=== PATIENT | female | born 1985 | race Caucasian/White ===

== ENCOUNTER 2020-03-10 14:26 | Emergency (ER) | payer BC ==
[2020-03-10 14:31] VITALS: BP 147/100; TEMP 97.9
--- NOTE | 2020-03-10 14:49 | ED ---
General Adult HPI - General Chief complaint: Arrhythmia/Palpitations Stated complaint: tachycardia,abscess buttocks Time Seen by Provider: 03/10/20 14:34 Source: patient, RN notes reviewed Mode of arrival: ambulatory Limitations: no limitations - History of Present Illness Initial comments: 34-year-old female with a past medical history cholecystectomy presents to the emergency department for a chief complaint of abscess of the buttock. Patient states she noticed it this weekend and it started to worsen. States that today it opened up and drained. She went to urgent care in her heart rate was in the 120s so they were concerned and sent her to the ER. She denies any abdominal pain. Denies any fevers. States she just feels very anxious and thinks that is why her heart rate is high. Dates that she was told she might have to have it "scraped out" by her brother and this caused her significant anxiety. She did schedule an appointment with a surgeon in one week.Patient has no other complaints at this time including shortness of breath, chest pain, abdominal pain, nausea or vomiting, headache, or visual changes. - Related Data Previous Rx's Medication Instructions Recorded Sulfamethox-Tmp 800-160Mg [Bactrim 1 tab PO Q12HR #20 tab 03/10/20 DS 800-160 mg] Allergies Allergy/AdvReac Type Severity Reaction Status Date / Time No Known Allergies Allergy Verified 03/10/20 14:31 Review of Systems ROS Statement: Those systems with pertinent positive or pertinent negative responses have been documented in the HPI. ROS Other: All systems not noted in ROS Statement are negative. Past Medical History Past Medical History: No Reported History History of Any Multi-Drug Resistant Organisms: None Reported Past Surgical History: Cholecystectomy Smoking Status: Current every day smoker Past Alcohol Use History: Daily Past Drug Use History: None Reported General Exam Limitations: no limitations General appearance: alert, in no apparent distress Head exam: Present: atraumatic, normocephalic, normal inspection Eye exam: Present: normal appearance, PERRL, EOMI. Absent: scleral icterus, conjunctival injection, periorbital swelling ENT exam: Present: normal exam, mucous membranes moist Neck exam: Present: normal inspection, full ROM. Absent: tenderness, meningismus, lymphadenopathy Respiratory exam: Present: normal lung sounds bilaterally. Absent: respiratory distress, wheezes, rales, rhonchi, stridor Cardiovascular Exam: Present: regular rate, normal rhythm, normal heart sounds. Absent: systolic murmur, diastolic murmur, rubs, gallop, clicks GI/Abdominal exam: Present: soft, normal bowel sounds. Absent: distended, tenderness, guarding, rebound, rigid Rectal exam: Present: normal inspection (no pain), other (pilonidal abscess present, currently draining, no surrounding cellulitis) Neurological exam: Present: alert Course Vital Signs 03/10/20 03/10/20 14:28 14:46 Temperature 97.9 F Pulse Rate 127 H 97 Respiratory 18 Rate Blood Pressure 147/100 O2 Sat by Pulse 99 Oximetry Medical Decision Making - Medical Decision Making Physical exam does reveal a pilonidal abscess. This does not appear perirectal. No surrounding cellulitis. This is already draining. No history of diabetes. The patient will be given Bactrim. I did discuss using sitz baths frequently to keep facilitating the drainage. She has an appointment with surgeon in one week that she will attend. If she has any worsening symptoms she will return here to the emergency room. Disposition Clinical Impression: Pilonidal abscess Disposition: HOME SELF-CARE Condition: Good Instructions (If sedation given, give patient instructions): Pilonidal Cyst (ED) Additional Instructions: Please take antibiotic as directed. This was prescribed to your pharmacy. Do warm baths or sits baths. Follow-up with the surgeon next week at your scheduled appointment. Return for any worsening symptoms. Prescriptions: Sulfamethox-Tmp 800-160Mg [Bactrim DS 800-160 mg] 1 tab PO Q12HR #20 tab Is patient prescribed a controlled substance at d/c from ED?: No Referrals: Chadd Bain DO [Primary Care Provider] - 1-2 days Time of Disposition: 14:49
[2020-03-10 14:59] VITALS: PULSE 89; RESP 16
== END 2020-03-10 15:00 | disposition home or self-care (01) ==
LOC: EC 14:26
DX: L05.01 Pilonidal cyst with abscess (principal); F17.200 Nicotine dependence, unspecified, uncomplicated; Z90.49 Acquired absence of other specified parts of digestive tract
CPT/HCPCS: 87070; 87205; 99284

== ENCOUNTER → 2024-05-14 | Outpatient (CLI) | payer OTHER ==
--- NOTE | 2024-05-14 12:08 | MR ---
EXAMINATION TYPE: MR lumbar spine wo con DATE OF EXAM: 05/14/2024 COMPARISON: Radiograph 04/12/2024 HISTORY: 38-year-old female M54.5, M47.816 LUMBAR PAIN, Low back pain x1.5-2 years TECHNIQUE: Multiplanar, multisequence images of the lumbar spine were acquired without IV contrast. FINDINGS: Vertebral body heights are preserved and alignment is maintained. Conus medullaris is normal. Alignment is maintained. There is moderate degenerative disc disease at L5-S1 with desiccated, narrowed, and bulging disc. Justin e associated mixed Modic type I and type II endplate changes present here. Mild degenerative disc disease L4-L5 with early intervertebral disc desiccation. No large focal disc herniation or significant canal stenosis is seen. No suspicious bone marrow replacement. At L5-S1, there is diffuse disc bulge with superimposed left paracentral disc extrusion with inferior migration of disc material. The migrating disc material measures 9 mm craniocaudal and 9 mm wide and closely approaches, possibly abutting the traversing left S1 nerve root. Changes result in mild to moderate overall left neuroforaminal stenosis here at L5-S1. No prevertebral or paravertebral soft tissue abnormality. IMPRESSION: 1. Moderate degenerative disc disease at L5-S1 with mixed Modic type I and type II endplate change. A dditional mild degenerative disc disease at L4-L5. No large focal disc herniation or significant spin al canal stenosis. 2. However, there is a superimposed central, left paracentral disc extrusion with inferior migration of disc material at L5-S1. The migrating disc material measures 9 x 9 mm and closely approaches, poss ibly abuts the traversing left S1 nerve root. 3. Change results in [id number] left neural foraminal stenosis here at L5-S1.
== END | disposition home or self-care (01) ==
LOC: RADMRIMAIN 11:07
PROVIDERS: ATTEND Orthopaedic Surgery
DX: M51.37 Other intervertebral disc degeneration, lumbosacral region (principal); M51.27 Other intervertebral disc displacement, lumbosacral region; M51.36 Other intervertebral disc degeneration, lumbar region; M99.73 Connective tissue and disc stenosis of intervertebral foramina of lumbar region; M47.816 Spondylosis without myelopathy or radiculopathy, lumbar region
CPT/HCPCS: 72148

== ENCOUNTER → 2024-08-16 | Outpatient (CLI) | payer OTHER ==
[2024-08-16 14:57] VITALS: BP 139/94; PULSE 82; RESP 16; TEMP 97.9
--- NOTE | 2024-08-16 15:11 | P.PAINPG ---
PQRS Measure Charge Sheet Comment: HISTORY OF PRESENT ILLNESS: A 39 yr old female as a referral from Dr Jiang presents today w severe and chronic LBP > 3 mo secondary to radiculopathy, spondylosis and facet arthropathy without myelopathy for evaluation. Pt states pain level is provoked at 6 /10 in intensity, constant, localized in the lumbar spine, predominantly axial, ahcy in character w occasional shooting pain towards the buttocks. Pain is provoked by bending. Pain is alleviated by chiropractic treatments semi monthly x 3 mo in 2 023 without relief, physician guided home exercises 4 times weekly since 2022, medications (Naproxen), topical, heat, repositioning and rest . PMH: OA, Vitamin D Deficiency PSH: Cholecystectomy SH: Daily tobacco use, Daily ETOH use, No illicit drug use FH: Non contributory All: See list Meds: See list REVIEW OF ORGAN SYSTEMS: CONSTITUTIONAL: No fevers or chills. No recent weight loss. NEUROLOGICAL: + numbness and tingling along the distal extremities. No seizure disorders or headaches. MUSCULOSKELETAL: + pain PSYCHIATRIC: Denies current depression or suicidal thoughts. Physical Examinations : Constitutional : Cooperative , not in acute distress . Neurologic : Cranial nerve II to XII intact. No focal neurological deficits. Psychiatric : alert & oriented x 3. Matching mood & appropriate affect. Judgment & insight intact. Musculoskeletal : Cervical Spine Motor strength in the deltoid and biceps: Normal right side. Normal Left side Motor strength biceps and the wrist extensors: Normal right side . Normal left side Motor strength in the triceps muscle: Normal right side. Normal left side Deep tendon reflexes: Normal at the biceps. Normal at Brachioradialis. Normal at triceps Vertebral body tenderness to deep palpation over Cervical facet loading test: positive bilaterally Spurling test: positive bilaterally Neck distraction test: positive bilaterally Emeli sign: positive bilaterally Lumbar spine Motor strength lower extremities ,thigh and legs 5/5 Right side , 5/5 Left side Deep tendon reflexes : Normal Knee Jerk. Normal Ankle Jerk Vertebral body tenderness over L5 Solis Test positive BL L5-S1 Lumbar facet Loading Test: positive Right / positive Left Range of motion of the lumbar spine Flexion 30 degrees, extension 10 degrees Straight Leg Raise test: Left/ Right positive at degrees Geno test: positive right / positive left. Severe tenderness over the Sacroiliac joint on the Right / Left sides Gaenslen test: positive bilaterally Seated flexion test: positive bilaterally. Sacral spine : Severe tenderness over the Sacroiliac joint: right side / left side Range of motion: Flexion of the lumbar spine <60 degrees Range of motion: Extension of the lumbar spine <20 degrees Gaenslen's Test positive Geno test: positive right side / left side Thigh Thrust Test Sacral Thrust Test Imaging: MRI non contrast lumbar spine from 05/24/24 reviewed Assessment/ Plan : Lumbar radiculopathy Recommendation of DIMITRIS L5-S1 #1. Risks, benefits of procedure discussed and patient verbalized understanding. Admits to anti- coagulant use or medical history of diabetes. Protocol for discontinuation/ continuation of medications jaya procedure discussed. All questions answered. I have spent greater than 30 minutes on patient care today. Dr Mayer was available by phone for the evaluation of this patient. The time was used to review the medical records including relevant urine studies and Prescription history (MAPs), review of the available imaging, evaluation and examination of the patient, coordination of care with the medical staff and if applicable referring physicians, as well as creation of the medical record PQRS Narrative: Smoking Status Current every day smoker Home Medications: Ambulatory Orders Sulfamethox-Tmp 800-160Mg [Bactrim DS 800-160 mg] 1 tab PO Q12HR #20 tab 03/10/20 diazePAM [Valium] 5 mg PO DAILY PRN 1 Days #2 tab 08/16/24 Controlled Substance Measures - Controlled Substance Measures Is patient prescribed a controlled substance at discharge?: Yes When asked, does pt state using other controlled substances?: Yes If prescribed controlled substance>3 days was MAPS reviewed?: Prescribed <3 Days
== END ==
LOC: PNWHC3 13:49
PROVIDERS: ATTEND Specialist
DX: M47.896 Other spondylosis, lumbar region
CPT/HCPCS: 99211

== ENCOUNTER 2024-08-31 13:00 | Day surgery (SDC) | payer OTHER ==
[~2024-08-31 13:00] MED LIST: LACTATED RINGERS 1,000 ML IV SCH
[2024-08-31 13:27] VITALS: TEMP 97.2
[2024-08-31] MEDS ORDERED: IOPAMIDOL M200 10 ML VIAL ONE (13:42)
[2024-08-31] MEDS ORDERED: DEXAMETHASONE SOD PHOSPHATE 10 MG/ML 1 ML VIAL ONE (13:42)
--- NOTE | 2024-08-31 13:51 | P.PCN ---
Date of Procedure: 08/31/24 Procedure(s) Performed: PREOPERATIVE DIAGNOSIS: 1- Lumbar Degenerative Disc Diseases 2-Lumbar radiculopathy 3-lumbar foraminal stenosis POSTOPERATIVE DIAGNOSIS: 1-lumbar degenerative disc disease. 2-lumbar radiculopathy. 3-lumbar foraminal stenosis. PROCEDURE 1. Lumbar epidural steroid injection under fluoroscopic guidance at the L5-S1 level. (Fluoroscopy imaging was available in radiology department) 2. Lumbar epidurogram. ANESTHESIA: Lidocaine 1% 3 and then only. EBL: Minimal PROCEDURE INDICATION: The patient with low back pain and radiculitis symptoms unresponsive to conservative treatment. Fluoroscopy was used to optimize visualization of the needle placement and to maximize safety. PROCEDURE DESCRIPTION / TECHNIQUE: The patient was seen and identified in the preoperative area. Risks, benefits, complications including but not limited to infections ,bleeding ,allergic reaction to the medications ,nerve damage and not complete pain releife , and alternatives were discussed with the patient. The patient agreed to proceed with the procedure and signed the consent, and vital signs were stable. Patient was taken to the OR and time out was completed. The patient was placed in the prone position on procedure table and a pillow was placed under the abdomen to reduce lumbar lordosis. The lumbosacral area was prepped and draped in the usual sterile fashion.ere closely monitored during the procedure. Vital signs was monitered during the entire procedure. Using anterior-posterior fluoroscopy, the L5-S1 interlaminar space was identified and the skin over this site was marked and then infiltrated with 1% lidocaine subcutaneously. Subsequently, a 20-gauge Tuohy epidural needle was inserted and advanced toward the epidural space using the ``Loss of resistance technique and guided by AP and lateral fluoroscopy. The correct needle position in the epidural space was verified with the injection of 2 mL of the water soluble contrast dye Isovue 200 contrast and observing an excellent epidurogram with the epidural spread of the dye, after negative aspiration for blood and CSF and in the absence of paresthesias. Again after negative aspiration, a 6 ml mixture containing 20 mg of Dexamethasone ( Preservetive Free ), and 2 ml of preservative free Normal Saline, and 2 ml of preservative free lidocaine 1% solution was injected and a washout of epidurogram was seen. Needle was withdrawn intact, skin was cleansed, and bandages were applied. COMPLICATIONS: None DISPOSITION / PLANS: The patient was placed in a supine position and transferred to the recovery area in a stable condition for observation. There was no evidence of lower extremity motor or sensory deficit after the procedure. Patient was discharged from the recovery room after meeting discharge criteria. Home discharge instructions were given to the patient by the staff. The patient was reexamined prior to discharge. The patient will schedule a follow up in the clinic in 2-4 weeks.
[2024-08-31 14:17] VITALS: BP 121/79; PULSE 85; RESP 20
--- NOTE | 2024-08-31 15:39 | FL ---
EXAMINATION TYPE: FL guided pain mgmt statistic DATE OF EXAM: 08/31/2024 FLUOROSCOPY Lumbar Epid Inj 14sec fluoro time .[address] Donahue One image submitted [facility], , 08/31/2024 3:36 PM
== END 2024-08-31 14:19 | disposition home or self-care (01) ==
LOC: ORPAIN 13:00
PROVIDERS: ATTEND Specialist
DX: M51.16 Intervertebral disc disorders with radiculopathy, lumbar region (principal); M48.061 Spinal stenosis, lumbar region without neurogenic claudication; Z91.011 Allergy to milk products
CPT/HCPCS: 81025; 62323; J1100; Q9966

== ENCOUNTER → 2024-09-24 | Outpatient (CLI) | payer OTHER ==
[2024-09-24 08:33] VITALS: BP 121/87; PULSE 93; RESP 16
--- NOTE | 2024-09-24 16:47 | P.PAINPG ---
Objective - Vital Signs Vital signs: Vital Signs Temp Pulse 93 09/24/24 08:28 Resp 16 09/24/24 08:28 BP 121/87 09/24/24 08:28 Pulse Ox 98 09/24/24 08:28 FiO2 Intake & Output 09/23/24 09/24/24 09/24/24 18:59 06:59 18:59 Weight 98.883 kg PQRS Measure Charge Sheet Mode of Arrival: Ambulatory Comment: HISTORY OF PRESENT ILLNESS: A 39 yr old female presents today w severe and chronic LBP > 3 mo secondary to radiculopathy, spondylosis and facet arthropathy without myelopathy for evaluation s/p DIMITRIS L5-S1 #1. Pt states she experienced 40% pain relief s/p procedure. Pt states pain level is provoked at 6 /10 in intensity, constant, localized in the lumbar spine, predominantly axial, ahcy in character without shooting pain . Pain is provoked by bending, laying supine. Pain is alleviated by chiropractic treatments semi monthly x 3 mo in 2022 without relief, physician guided home exercises 4 times weekly since 2022, medications, topical, heat, repositioning and rest . Interventional procedures include DIMITRIS L5-S1 x1 Medications include Naproxen REVIEW OF ORGAN SYSTEMS: CONSTITUTIONAL: No fevers or chills. No recent weight loss. NEUROLOGICAL: + numbness and tingling along the distal extremities. No seizure disorders or headaches. MUSCULOSKELETAL: + pain PSYCHIATRIC: Denies current depression or suicidal thoughts. Physical Examinations : Constitutional : Cooperative , not in acute distress . Neurologic : Cranial nerve II to XII intact. No focal neurological deficits. Psychiatric : alert & oriented x 3. Matching mood & appropriate affect. Judgment & insight intact. Musculoskeletal : Cervical Spine Motor strength in the deltoid and biceps: Normal right side. Normal Left side Motor strength biceps and the wrist extensors: Normal right side . Normal left side Motor strength in the triceps muscle: Normal right side. Normal left side Deep tendon reflexes: Normal at the biceps. Normal at Brachioradialis. Normal at triceps Vertebral body tenderness to deep palpation over Cervical facet loading test: positive bilaterally Spurling test: positive bilaterally Neck distraction test: positive bilaterally Emeli sign: positive bilaterally Lumbar spine Motor strength lower extremities ,thigh and legs 5/5 Right side , 5/5 Left side Deep tendon reflexes : Normal Knee Jerk. Normal Ankle Jerk Vertebral body tenderness over L5 Solis Test positive BL L5-S1 Lumbar facet Loading Test: positive Right / positive Left L4-L5, L5-S1 Range of motion of the lumbar spine Flexion 30 degrees, extension 10 degrees Straight Leg Raise test: Left/ Right positive at degrees Geno test: positive right / positive left. Severe tenderness over the Sacroiliac joint on the Right / Left sides Gaenslen test: positive bilaterally Seated flexion test: positive bilaterally. Sacral spine : Severe tenderness over the Sacroiliac joint: right side / left side Range of motion: Flexion of the lumbar spine <60 degrees Range of motion: Extension of the lumbar spine <20 degrees Gaenslen's Test positive Geno test: positive right side / left side Thigh Thrust Test Sacral Thrust Test Imaging: MRI non contrast lumbar spine from 05/24/24 reviewed Assessment/ Plan : Lumbar radiculopathy Recommendation of BL MBB L4-L5/ L5-S1 #1. Risks, benefits of procedure discussed and patient verbalized understanding. Admits to anti- coagulant use or medical history of diabetes. Protocol for discontinuation/ continuation of medications jaya procedure discussed. Minimal anesthesia including Fentanyl and Versed if clinically indicated. All questions answered. I have spent greater than 30 minutes on patient care today. Dr Mayer was available by phone for the evaluation of this patient. The time was used to review the medical records including relevant urine studies and Prescription history (MAPs), review of the available imaging, evaluation and examination of the patient, coordination of care with the medical staff and if applicable referring physicians, as well as creation of the medical record - Pain Location Lower Back Non-Pharmacological Interventions: Heat, Ice Pharmacological Interventions: Epidural, Medication PQRS Narrative: Smoking Status Current every day smoker Blood Pressure 121/87 Pain Intensity [Lower Back] 5 Scale Used Numeric (1 - 10) Hx Alcohol Use (MH) No Home Medications: Ambulatory Orders diazePAM [Valium] 5 mg PO DAILY PRN 1 Days #2 tab 08/16/24 Dextroamphetamine/Amphetamine [Adderall] 20 mg PO BID 08/29/24 Naproxen Sodium [Aleve] 220 mg PO BID PRN 08/29/24 Controlled Substance Measures - Controlled Substance Measures Is patient prescribed a controlled substance at discharge?: No
== END ==
LOC: PNWHC3 08:18
PROVIDERS: ATTEND Specialist
DX: M54.16 Radiculopathy, lumbar region (principal); F17.200 Nicotine dependence, unspecified, uncomplicated; Z91.011 Allergy to milk products
CPT/HCPCS: 99211